=== PATIENT | female | born 1970 | race Caucasian/White ===

== ENCOUNTER → 2017-11-01 | Outpatient (CLI) | payer OTHER ==
[~2017-11-01] MED LIST: ATIVAN0.5 MG PO; CITALOPRAM HBR20 MG PO; ONDANSETRON ODT4 MG PO; ROXICODONE5 MG PO
== END | disposition home or self-care (01) ==
LOC: CDC 12:57
DX: Z01.810 Encounter for preprocedural cardiovascular examination (principal); C50.412 Malignant neoplasm of upper-outer quadrant of left female breast; R94.31 Abnormal electrocardiogram [ECG] [EKG]
CPT/HCPCS: 93000

== ENCOUNTER 2017-12-13 08:35 | Day surgery (SDC) | payer OTHER ==
[~2017-12-13] VITALS: Ht 175.3 cm; Wt 77.1 kg
[~2017-12-13 08:35] MED LIST changes: +CBD OIL SL; +DECADRON4 M1 PO; +KEPPRA500 MG PO
[2017-12-13 09:27] VITALS: BP 100/58
[2017-12-13 16:06] VITALS: BP 117/64
[2017-12-13 19:00] VITALS: BP 106/58
[2017-12-13 23:05] VITALS: BP 99/56
[2017-12-14 03:30] VITALS: BP 102/64
[2017-12-14 06:31] LABS: HEMATOCRIT 35.2 % (36.0-46.0); HEMOGLOBIN 11.9 G/DL (11.9-15.5); MCH 32.2 PG (29.0-34.0); MCHC 33.8 G/DL (30.0-36.0); MCV 95.1 FL (83-99); PLATELET COUNT 223 K/uL (156-360); RBC DIS.WIDTH-SD 45.5 % (39-53); WHITE BLOOD COUNT 9.9 K/uL (4.1-10.2)
[2017-12-14 08:05] VITALS: BP 98/53
[2017-12-14 11:15] VITALS: BP 115/59
[2017-12-14] MEDS ORDERED: ENDOCET 5-3251 EACH PO (12:56)
== END 2017-12-14 15:43 | disposition home or self-care (01) ==
LOC: SDC 08:35 → 2SOUTH 13:41 → 2EAST 13:41 → 2SOUTH 13:41 → ENRESERV 13:44 → SDC 15:25 → 2EAST 15:56
PROVIDERS: Surgery
PROC: 0HTU0ZZ Resection of Left Breast, Open Approach (ICD-10-PCS; principal; 2017-12-13)
DX: C50.412 Malignant neoplasm of upper-outer quadrant of left female breast (principal); Z17.0 Estrogen receptor positive status [ER+]; G40.909 Epilepsy, unspecified, not intractable, without status epilepticus; F17.210 Nicotine dependence, cigarettes, uncomplicated; R94.31 Abnormal electrocardiogram [ECG] [EKG]; F41.9 Anxiety disorder, unspecified
CPT/HCPCS: 85027; 88309; 88341 TC; 88342 TC; G0378; J0131; J0330; J0690; J1100; J1170; J2405; J3010; J3480; S0020